=== PATIENT | male | born 1980 | race Caucasian/White ===

== ENCOUNTER 2016-04-28 12:43 | Emergency (ER) | payer OTHER ==
[2016-04-28 13:17] VITALS: BP 132/81
[2016-04-28] MEDS ORDERED: Mupirocin 2% OINT* TUBE TOPICAL ONE (13:56)
[2016-04-28] MEDS ORDERED: Mupirocin 2% OINT* TUBE TOPICAL SCH ×3 (13:58→21:00)
--- NOTE | 2016-04-28 15:06 | UC ---
Waldo Garcia Anna, scribed for Madeleine Robert MD on 04/28/16 at 1333 . Abdominal Pain Male HPI - HPI Summary HPI Summary: Patient is a 35 y/o male coming to [place] presenting with abdominal pain that began three days ago. He noticed that his belly button was inflamed and sticking out. His sister helped him pop his belly button back in yesterday, and he reports it made a popping sound. It hurt after being popped back in, and he drank more alcohol afterwards. He has not tried eating since that time. He describes the severity of the pain as 7/10, only when touched. He had some diarrhea a week ago, but that has since resolved. He thinks he had a normal BM today. He did not eat or drink anything today, but it does not hurt to eat or drink. He also split the nail on his right pinky toe three days ago when he kicked a rock. He describes the severity of the toe pain as 4/10. He has been putting peroxide on his toe daily, but this has not alleviated the symptoms. He is shaky, but reports that he is shaky at baseline. Denies Hx of hernias or abd surgery. He thinks his last tetanus shot was more than five years ago. He returned to [place] from [place] within the last hour and reports drinking more than usual over the past few days as a part of the trip. 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 - Accompanied by Onset/Duration: Lasting Days, Still Present Severity Initially: Moderate Severity Currently: Moderate Pain Intensity: 7 Pain Scale Used: 0-10 Numeric - Allergies/Home Medications Allergies/Adverse Reactions: Allergies Allergy/AdvReac Type Severity Reaction Status Date / Time Shellfish Allergy Allergy Severe Anaphylatic Verified 07/25/15 07:14 Shock Hydroxyzine Allergy Intermediate seizures Verified 07/25/15 07:14 Sulfamethoxazole Allergy Intermediate Rash Verified 07/25/15 07:14 w/Trimethoprim [From Bactrim] Penicillins Allergy Unknown Verified 07/01/13 16:20 Reaction Details Home Medications: Home Medications Clonazepam [Klonopin] TID 04/28/16 [History] Lamotrigine [Lamictal] BID 04/28/16 [History] PMH/Surg Hx/FS Hx/Imm Hx Endocrine History Of: Denies: Diabetes, Thyroid Disease Cardiovascular History Of: Denies: Cardiac Disorders, Hypertension Respiratory History Of: Denies: COPD, Asthma GI/ History Of: Denies: Ulcer Neurological History Of: Reports: Seizures, Migraine Psychological History Of: Reports: Anxiety - Surgical History Surgical History: None - Family History Known Family History: Positive: Hypertension, Diabetes - Hx in father - Social History Lives: With Family Alcohol Use: Daily Substance Use Type: None Smoking Status (MU): Light Every Day Tobacco Smoker Type: Cigarettes Amount Used/How Often: 2 CIG/DAY- 1/2 PPD Length of Time of Smoking/Using Tobacco: 15+ years Have You Smoked in the Last Year: Yes Household Exposure Type: Cigarettes Review of Systems Constitutional: Negative Skin: Negative Eyes: Negative ENT: Negative Respiratory: Negative Cardiovascular: Negative Gastrointestinal: Abdominal Pain, Diarrhea - Resolved, see HPI Genitourinary: Negative Motor: Negative Neurovascular: Negative Musculoskeletal: Myalgia - See HPI Neurological: Other - tremor at baseline Psychological: Negative All Other Systems Reviewed And Are Negative: Yes Physical Exam Triage Information Reviewed: Yes Appearance: Well-Nourished Vital Signs: Initial Vital Signs Temp 98.5 F 04/28/16 13:07 Pulse 80 04/28/16 13:07 Resp 18 04/28/16 13:07 BP 132/81 04/28/16 13:07 Pulse Ox 97 04/28/16 13:07 Vital Signs Reviewed: Yes Eye Exam: Normal ENT Exam: Normal Neck exam: Normal, Other - No adenopathy appreciated Respiratory: Positive: Chest non-tender, Lungs clear, Normal breath sounds, No respiratory distress, No accessory muscle use Cardiovascular Exam: Normal Cardiovascular: Positive: RRR, No Murmur, Pulses Normal, Brisk Capillary Refill Abdominal Exam: Other - + hyperactive bs. No cvat. Exquisitely tender umbilical region. Also very tender L lat umbilicus, slightly firm. O/w w/o rebound. + local guard. No ashish discoloration. Bowel Sounds: Positive: Present Musculoskeletal Exam: Normal Musculoskeletal: Positive: Strength Intact Neurological Exam: Normal - Nonfocal, grossly intact Psychological Exam: Normal - Conversing easily and appropriately Skin Exam: Other - R 5th toe with cracked toenail. Mild redness. No purulence. CR < 2 sec. Good pulses. Abd Pain Male Course/Dx - Course Course Of Treatment: He was offered a tetanus shot and declines. He will think about it, and let the ED know. He reports he has never had a CT scan before. Patient offered and encouraged EMS. Patient declines. No new problems in CCC. Considered below differential diagnoses. Sx/x c/w acute abd pain. R 5th toe cellulitis (note - abx per ED as actual allergies unclear. Also, given acute abd pain, po abx tbd pending further eval. However, topical mupirocin applied here) - Differential Dx/Clinical Impression Provider Diagnoses: Acute abd pain. 5th toe cellulitis - Physician Notification/Consults Discussed Patient Care With: Called [facility] at 1350. Spoke with Emy Yanes (ED Provider) at 1351. Agrees to accept patient at [facility]. Discharge - Discharge Plan Condition: Guarded Disposition: TRANS HIGHER LVL OF CARE FAC Discharge Disposition Comment: [facility] Referrals: Jorge MADRID,Josue Gorman [Primary Care Provider] - The documentation as recorded by the Waldo rodriguez Anna accurately reflects the service I personally performed and the decisions made by me, Madeleine Robert MD.
== END 2016-04-28 14:10 | disposition short-term general hospital (02) ==
LOC: UCEAST 12:43
DX: R10.33 Periumbilical pain (principal); R19.7 Diarrhea, unspecified; L03.031 Cellulitis of right toe; Z88.0 Allergy status to penicillin; Z88.2 Allergy status to sulfonamides; F17.210 Nicotine dependence, cigarettes, uncomplicated
CPT/HCPCS: 99213; G0463

== ENCOUNTER 2016-04-28 14:34 | Emergency (ER) | payer OTHER ==
[2016-04-28] MEDS ORDERED: NS 0.9% 1000 ML* 1,000 ML IV ONE (18:10)
--- NOTE | 2016-04-28 18:17 | ED ---
Abdominal Pain/Male - HPI Summary HPI Summary: Pt here w/ central ab pain since yesterday. Noticed a bump over his umbilicus 2 weeks ago but this was not painful then nor does he know how it appeared (ie denies heavy lifting, pulling, etc but does report he struggles to move his bowels at times). He noted it looked more prominent yesterday when he was pushing himself up from off the floor after lying down. He contacted his PCP and a live MD chat who recommended he try pushing it back into place. He reports his sister did this for him yesterday afternoon and it's been painful since. He had to fly home this morning at 4:00 from [facility] and has not eaten or drank since. Denies fever, chills, N/V/D, dysuria, flank pain, chest pain, SOB, back pain. Denies h/o ab issues/surgeries but reports most of the men in his family have had hernias. He also reports he kicked his Rt little toe against a rock while in [facility]. Cracked the nail and he thinks broke the toe. Has been walking around on it, sometimes barefoot in the sand. 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 Per pt, initially tx'd w/incorrect anbx but after cx returned, was switched to doxycycline w/ good outcomes. Denies streaking or calf pain here. 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 Pain Intensity: 0 - Allergies/Home Medications Allergies/Adverse Reactions: Allergies Allergy/AdvReac Type Severity Reaction Status Date / Time Shellfish Allergy Allergy Severe Anaphylatic Verified 07/25/15 07:14 Shock Hydroxyzine Allergy Intermediate seizures Verified 07/25/15 07:14 Sulfamethoxazole Allergy Intermediate Rash Verified 07/25/15 07:14 w/Trimethoprim [From Bactrim] Penicillins Allergy Unknown Verified 07/01/13 16:20 Reaction Details PMH/Surg Hx/FS Hx/Imm Hx Previously Healthy: Yes - currently transitioning anti-epileptic meds Endocrine/Hematology History: Denies: Hx Anticoagulant Therapy, Hx Blood Disorders, Hx Diabetes, Hx Thyroid Disease, Autoimmune Disease Cardiovascular History: Denies: Hx Cardiac Arrest, Hx Hypertension, Hx Valvular Heart Disease Respiratory History: Denies: Hx Asthma, Hx Chronic Obstructive Pulmonary Disease (COPD) GI History: Denies: Hx Cirrhosis, Hx Crohn's Disease, Hx Diverticulosis, Hx Gall Bladder Disease, Hx Gastroesophageal Reflux Disease, Hx Gastrointestinal Bleed, Hx Hiatal Hernia, Hx Irritable Bowel, Hx Ulcer Neurological History: Reports: Hx Migraine, Hx Seizures - transitioning from keppra to lamictal - takes klonopin daily Psychiatric History: Reports: Hx Anxiety - klonopin Infectious Disease History: No Infectious Disease History: Reports: Hx of Known/Suspected MRSA - left forearm - cleared Denies: Hx Clostridium Difficile, Hx Hepatitis, Hx Human Immunodeficiency Virus (HIV), Hx Shingles, Hx Tuberculosis, Hx Known/Suspected VRE, Hx Known/ Suspected VRSA, History Other Infectious Disease, Traveled Outside the [place] in Last 30 Days - Family History Known Family History: Positive: Hypertension, Diabetes - father - believed to be weight related - Social History Occupation: Employed Full-time Lives: With Family Alcohol Use: Daily Alcohol Amount: 12 pack per day while on vacation this past week Hx Substance Use: No Substance Use Type: Reports: None Smoking Status (MU): Current Every Day Smoker Type: Cigarettes Amount Used/How Often: < 1 PPD Length of Time of Smoking/Using Tobacco: 15+ years Have You Smoked in the Last Year: Yes Review of Systems Constitutional: Negative Cardiovascular: Negative Respiratory: Negative Gastrointestinal: Other - see HPI Genitourinary: Negative Skin: Negative Neurological: Negative Psychological: Normal All Other Systems Reviewed And Are Negative: Yes Physical Exam Triage Information Reviewed: Yes Vital Signs On Initial Exam: Initial Vitals Temp Pulse Resp BP Pulse Ox 96.9 F 71 18 127/79 97 04/28/16 14:48 04/28/16 14:48 04/28/16 14:48 04/28/16 14:48 04/28/16 14:48 Vital Signs Reviewed: Yes Appearance: Positive: Well-Appearing, Well-Nourished, Pain Distress - mild - appears uncomfortable seated in reclining chair Skin: Positive: Warm, Dry - see ABDIFATAH below; sunburn in some places on LE's - not on feet Head/Face: Positive: Normal Head/Face Inspection Eyes: Positive: Normal, EOMI, Conjunctiva Clear - anicteric sclera ENT: Positive: Hearing grossly normal, Pharynx normal - mucosa moist Neck: Positive: Supple Respiratory/Lung Sounds: Positive: Clear to Auscultation, Breath Sounds Present. Negative: Rales, Rhonchi, Wheezes Cardiovascular: Positive: Normal, RRR, Pulses are Symmetrical in both Upper and Lower Extremities, S1, S2. Negative: Murmur, Rub, Leg Edema Left, Leg Edema Right Abdomen Description: Positive: Soft, Distended - this is baseline body habitus - umbilicus appears to be blunted in shape - no ashish protrusion at this time - TTP; referred pain to umbilical area when all other areas of the ab are palpated - no rebounding. Negative: CVA Tenderness (R), CVA Tenderness (L) Bowel Sounds: Positive: Present Musculoskeletal: Positive: Normal, Strength/ROM Intact - FROM toes and ankle but is painful to move toe - no ashish edema but there is some mild swelling w/ erythema of Rt 5th toe which spreads to webbing between 5th and 4th toes ( webbing area is NTTP) - 5th nail is cracked in center - dried blood - no active d/c, no induration, no fluctuance Neurological: Positive: Normal, Sensory/Motor Intact, Alert, Oriented to Person Place, Time, CN Intact II-III Psychiatric: Positive: Anxious Diagnostics - Vital Signs Vital Signs Temp Pulse Resp BP Pulse Ox 04/28/16 17:15 97.8 F 79 18 126/81 97 04/28/16 16:10 97.2 F 57 18 128/76 98 04/28/16 14:48 96.9 F 71 18 127/79 97 - Laboratory Result Diagrams: 04/28/16 19:25 04/28/16 19:25 Lab Statement: Any lab studies that have been ordered have been reviewed, and results considered in the medical decision making process. Abdominal Pain Fem Course/Dx - Diagnoses Provider Diagnoses: Umbilical hernia, Cellulitis of fifth toe, right, Hepatic steatosis Discharge - Discharge Plan Condition: Stable Disposition: HOME Prescriptions: DOXYcycline CAP(*) [DOXYcycline 100MG CAP(*)] 100 mg PO BID #20 cap Patient Education Materials: Cellulitis (ED), Umbilical Hernia (ED), Non- Alcoholic Fatty Liver Disease (ED) Forms: *Work Release Referrals: Josue Carlisle [Primary Care Provider] - Additional Instructions: You umbilical hernia appears to be irritated from recent activity. See handout education for management of soreness since reduction. Follow-up with PCP for monitoring. *If you develop fever, chills, nausea, vomiting, diarrhea or inability to move bowels, return to ED You also appear to have a cellulitis of your toe. You may soak your toe 1-2 x day in soapy soak alternating with epsom salt solution. Elevate. You may take ibuprofen with food for pain. Follow-up with PCP for wound check in 5 days. If worse, seek attention sooner or return to ED. *If redness starts streaking up your foot, leg, fever, chills or swelling develop, return to ED. Also, your CT scan incidentally found you havea fatty liver. This is a chronic condition and may be improved with lifestyle. You may follow-up with your PCP to further discuss. Again, call tomorrow to schedule an appointment.
[2016-04-28 19:37] LABS: Hematocrit 50 % (42-52); Hemoglobin 16.8 g/dl (14.0-18.0); Mean Corpuscular HGB Conc 34 g/dl (31-36); Mean Corpuscular Hemoglobin 34 pg (27-31); Mean Corpuscular Volume 100 fL (80-94); Mean Platelet Volume 8 um3 (7.4-10.4); Red Blood Count 4.96 10^6/ul (4.0-5.4); Red Cell Distribution Width 13 % (10.5-15); White Blood Count 7.4 10^3/ul (3.5-10.8)
[2016-04-28 19:54] LABS: Albumin 4.4 g/dL (3.2-5.2); BUN/Creatinine Ratio 22.6 (8-20); C Reactive Protein 3.31 mg/L (< 5.00); Calcium 9.7 mg/dL (8.6-10.3); EGFR African American 133.7 (>60); Globulin 2.9 g/dL (2-4); Potassium 3.8 mmol/L (3.5-5.0); Total Bilirubin 0.7 mg/dL (0.2-1.0); Total Protein 7.3 g/dL (6.4-8.9)
[2016-04-28 20:01] LABS: Urine Bilirubin Negative (Negative); Urine Glucose Negative (Negative); Urine Nitrite Negative (Negative)
[2016-04-28] MEDS ORDERED: Iohexol 300* (CONTRAST) 10 ML SDV IV ONE (20:09)
--- NOTE | 2016-04-28 21:14 | RAD ---
Indication: Reduced umbilical hernia, evaluate for incarceration. Contrast: Administered 100.1 ml of OMNIPAQUE 300 mgi/ml CT of the abdomen and pelvis was performed after oral and IV contrast administration. Coronal and sagittal reconstructed images were obtained. Lung bases demonstrate no pleural fluid, nodules or masses. Heart is of normal size without evidence of pericardial effusion. Liver is normal in size. No focal lesions or intrahepatic ductal dilatation is noted. Gallbladder demonstrates no calcified gallstones. No pericholecystic fluid or wall thickening is noted. Pancreas demonstrates no mass or pancreatic duct dilatation. The spleen is normal in size. No adrenal lesions are noted. The kidneys demonstrate symmetric nephrograms without focal lesions. No hydronephrosis is present. No retroperitoneal lymphadenopathy is noted. No dilated loops of bowel are noted. The colon is filled with stool. CT of the pelvis demonstrates no retroperitoneal or pelvic lymphadenopathy. Diverticulosis without definite evidence of diverticulitis is noted. No hernias are noted. A periumbilical hernia containing fat is noted. No evidence of bowel is noted. No obstructive pattern is noted. The urinary bladder is unremarkable. The prostate and seminal vesicles are unremarkable. IMPRESSION: PERIUMBILICAL HERNIA. NO ABNORMAL MASSES OR FLUID COLLECTIONS ARE NOTED. NO EVIDENCE OF INCARCERATED HERNIA IS NOTED. NO EVIDENCE OF BOWEL OBSTRUCTION IS NOTED. THERE IS LIKELY HEPATIC STEATOSIS PRESENT.
[2016-04-28 22:19] VITALS: BP 130/75
== END 2016-04-28 22:17 | disposition home or self-care (01) ==
LOC: ED 14:34
DX: K42.9 Umbilical hernia without obstruction or gangrene (principal); L03.031 Cellulitis of right toe; N28.89 Other specified disorders of kidney and ureter
CPT/HCPCS: 36415; 74177; 80053; 81003; 83605; 83690; 85025; 86140; 99283; Q9967

== ENCOUNTER 2017-10-06 05:54 | Day surgery (SDC) | payer OTHER ==
[~2017-10-06 05:54] MED LIST: Buffered Lidocaine 0.9% SYRIN* 5 ML/SYR SYRINGE INTRADERM ONE
[2017-10-06] MEDS ORDERED: Famotidine IV* 10 MG/ML 2 ML (20 mg) IV ONE (06:00)
[2017-10-06] MEDS ORDERED: Dexamethasone IV* 4 MG/ML 1 ML (4 MG) IV SLOW PU ONE (06:00)
[2017-10-06] MEDS ORDERED: Dexamethasone IV* 4 MG/ML 1 ML (4 MG) ONE (06:08)
[2017-10-06] MEDS ORDERED: ceFAZolin 2 GM PREMIX (*) 0 GM/0 ML BAG IVPB ONE (06:09)
[2017-10-06] MEDS ORDERED: Famotidine IV* 10 MG/ML 2 ML (20 mg) ONE (06:09)
[2017-10-06] MEDS ORDERED: Clindamycin 900 MG IVPREMIX(* 900 MG/50 ML SDV IV ONE (06:11)
[2017-10-06] MEDS ORDERED: Atracurium* 10 MG/ML 10 ML VIAL ONE (06:59)
[2017-10-06] MEDS ORDERED: fentaNYL* 50 MCG/ML 2 ML VIAL (100 MCG VIAL) ONE (06:59)
[2017-10-06] MEDS ORDERED: Midazolam* 1 MG/ML 5 ML VIAL (5 MG) ONE (07:00)
[2017-10-06] MEDS ORDERED: ROPIVACAINE 5 MG/ML 30 ML BTL (0.5%) ONE (07:07)
[2017-10-06] MEDS ORDERED: Lidocaine 1% MPF wEPI 200,000* 30 ML SDV ONE (07:09)
[2017-10-06] MEDS ORDERED: Propofol* 10 MG/ML 20 ML BTL IV PUSH ONE ×2 (08:01)
[2017-10-06] MEDS ORDERED: Bacitracin OINTMENT* 0.5% 0.5 oz TUBE ONE (08:03)
[2017-10-06] MEDS ORDERED: fentaNYL* 50 MCG/ML 2 ML VIAL (100 MCG VIAL) IV PRN (08:15)
[2017-10-06] MEDS ORDERED: Naloxone* 0.4 MG/ML 1 ML VIAL IV PRN (08:15)
[2017-10-06] MEDS ORDERED: Ondansetron INJ* 2 MG/ML VIAL IV PRN (08:15)
[2017-10-06] MEDS ORDERED: oxyCODONE/Acetamin 5/325 MG* TAB PO PRN (08:15)
[2017-10-06] MEDS ORDERED: Acetaminophen TAB* 325 MG PO PRN (08:15)
[2017-10-06 08:49] VITALS: BP 125/91
--- NOTE | 2017-10-06 11:07 | OP ---
CC: JUANITA Lema, at [facility]. OPERATIVE REPORT: DATE OF OPERATION: 10/06/17 DATE OF : 80 SURGEON: Surinder Cummings MD TRAINING ADMINISTRATOR: Jaja Wilkerson NP ANESTHESIOLOGIST: Dr. Moreno. ANESTHESIA: Local MAC anesthesia. PRE-OP DIAGNOSIS: Umbilical hernia. POST-OP DIAGNOSIS: Umbilical hernia. OPERATIVE PROCEDURE: Open umbilical hernia repair. SPECIMEN: None. DRAINS: None. DESCRIPTION OF PROCEDURE: The patient was identified in the preoperative area, consent signed, he wa s marked and brought to the operating room, placed on the operating table in the supine position. Se quential devices were placed in bilateral lower extremities. Preoperative antibiotics were given. G entle sedation was given. The patient's abdomen was clipped of hair and prepped and draped in a agata dard surgical fashion and time-out was performed. After injection with lidocaine, an infraumbilical incision was made. This was deepened down to the a nterior fascia inferiorly and laterally. We then got around the umbilical skin, which was then sharp ly dissected off the hernia defect. Hernia defect was opened up and preperitoneal fat dropped back i nto the preperitoneal space. This was cleared off and defect was approximately three quarters of a c m. Next, a closure was performed with #1 Prolene sutures using 2 sutures in a pants- over-vest fashio n. Wound was irrigated, umbilical skin tacked down, and the skin was closed in a standard fashion. Steri-Strips and sterile dressings were applied. The patient tolerated the procedure well and was tra nsferred to the PACU in stable condition. [id number]/[facility] #: [id number]
== END 2017-10-06 08:50 | disposition home or self-care (01) ==
LOC: OR 05:54
PROVIDERS: ATTEND Surgery
DX: K42.9 Umbilical hernia without obstruction or gangrene (principal); Z72.0 Tobacco use; F41.9 Anxiety disorder, unspecified; G40.89 Other seizures
CPT/HCPCS: A9270-GY; J0690; J1100; J2001; J2250; J2704; J2795; J3010